=== PATIENT | female | born 1950 | race Caucasian/White ===

== ENCOUNTER → 2016-10-19 | Outpatient (CLI) | payer MEDICARE, OTHER ==
[~2016-10-19] MED LIST: ATROVENT INH S2.5 ML INH; BELVIQ10 MG PO; CEFUROXIME500 MG PO; CELEBREX200 MG PO; COMBIVENT RESPIM4 GM INH; COMBIVENT0.074 GM/I NEB; CRESTOR 10 MG T10 MG PO; DALIRESP500 MCG PO; DITROPAN XL15 MG PO; HABITROL 21 MG P1 EA TD; KLONOPIN TAB 00.5 MG PO; LIPITOR TAB 2020 MG PO; MEDROL DOSEPAK 24 MG PO; METOPROLOL TART25 MG PO; MOUTHSPRAY10 ML MM; NEURONTIN 400400 MG PO; NICOTINE PATCH1 EAC5 TD; NORCO 10-325 T1 EACH PO; NORVASC 5 MG TAB5 MG PO; PULMICORT0.5 MG/2 M INH; SPIRIVA RESPIMAT4 GM INH; SYMBICORT 160-1 INHA INH; TESSALON PERLE100 MG PO; TRAZODONE HCL100 MG PO; TYLENOL 325MG325 MG PO; VENLAFAXINE HC150 M1 PO; VENTOLIN HFA 66.7 GM INH; VENTOLIN/PROVE0.5 ML INH; VITAMIN B COMP1 EAC2 PO; VITAMIN D250000 UNIT PO
== END ==
LOC: HEART 5 14:23
DX: J44.9 Chronic obstructive pulmonary disease, unspecified (principal)
CPT/HCPCS: 94010; 94729